=== PATIENT | male | born 1950 | race Caucasian/White ===

== ENCOUNTER 2016-07-29 18:18 | Inpatient (IN) | payer OTHER ==
--- NOTE | ~2016-07-29 | CN ---
Consultation Report [facility] [address] [place]. [address] NAME: JUANPABLO ESPINOZA JR : 46 STATUS : ADM IN PAT#: [id number] AGE: 66 ADM/REG DATE : 07/29/16 MR#: [id number] REPORT SERV DATE: 07/29/16 DICTATED BY: ERIK HERNANDEZ DATE: 07/29/16 REPORT STATUS : Draft TRANSCRIBED BY: MODL DATE: 07/29/16 PULMONARY CRITICAL CARE MEDICINE CONSULTATION DATE OF CONSULTATION: 07/29/2016 REASON FOR CONSULTATION: Acute pancreatitis in the setting of alcoholism. HISTORY OF PRESENT ILLNESS: Mr. 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 He presented to our emergency department this afternoon after developing severe chest pain at home which was unrelieved by Pepto-Bismol which he believed initially to be due to gastric reflux. He also took an aspirin at home. The pain was sharp and radiated to his midscapular region in the back. He described the pain as intermittent. On his presentation in the emergency department, he was seen by Dr. Wolff and had an EKG which showed his chronic and previously documented left bundle-branch block. He was treated with morphine, Ativan, nitroglycerin, and heparin and unfortunately continued to have severe midsternal chest pain. Dr. Hilton was consulted for emergent coronary angiography due to high clinical suspicion for acute coronary syndrome. He was taken for left heart cath and Dr. Hilton assessed the patient and became concerned for potential aortic dissection. He was actually transferred from the left heart rn labor delivery to the CT scanner and ultimately back to the left heart rn labor delivery to finish his procedure. CT showed no PE and no aortic dissection; however, it did demonstrate inflammation about the pancreatic bed without evidence of necrosis. His heart cath was completed demonstrating 45% LAD proximal stenosis and eccentric 70% ostial left main coronary artery stenosis with superior staining concerning for aortic dissection (this was the finding that led to urgent transfer for a CT scan). Ultimately, Dr. Hilton determined that the patient had non-flow limiting coronary artery disease confirmed with IVUS and no intervention was performed as there was a competing diagnosis of alcoholic pancreatitis which was certainly supported by the patient's history of heavy vodka use and clinical presentation. He was moved to the CVICU for close monitoring tonight until the sheath can be removed and the plan is to move him to the floor tomorrow for ongoing management of his acute pancreatitis. PAST MEDICAL HISTORY: Hypertension, alcoholic cirrhosis, prior T-spine fractures, prior upper extremity fractures, tobacco abuse, and alcohol abuse. Coronary artery disease was diagnosed today. PAST SURGICAL HISTORY: ORIF of the humerus by Dr. Pasha Galvin on 11/13/2015 and chole[address]ectomy by Dr. Matteo Espana on 12/24/2015. SOCIAL HISTORY: The patient is a retired banker. He smokes approximately one pack per day and drinks up to a fifth of vodka daily. No illicit drug use. He has an estranged who is at the bedside with him this evening. ALLERGIES: NONE. Consultation Report [address] [place]. [address] NAME: JUANPABLO ESPINOZA JR : 46 STATUS : ADM IN [facility]#: [id number] AGE: 66 ADM/REG DATE : 07/29/16 MR#: [id number] REPORT SERV DATE: 07/29/16 DICTATED BY: ERIK HERNANDEZ DATE: 07/29/16 REPORT STATUS : Draft TRANSCRIBED BY: SEE DATE: 07/29/16 FAMILY HISTORY: Noncontributory. HOME MEDICATIONS: Lexapro 20 mg daily, Mobic 15 mg at bedtime, Nexium 40 mg daily, trazodone 150 mg p.o. at bedtime, multivitamin once daily, B complex vitamin once daily, and there is some question as to whether he is taking lisinopril although the pharmacy has not yet confirmed that. REVIEW OF SYSTEMS: A comprehensive 13-point review of systems was completed with the patient at the bedside in CVICU included nausea, pain as described above, reflux symptoms, and agitation. ADVANCE DIRECTIVES: Living Will. The patient is a full DNR which was confirmed on prior records as well as with the patient at the bedside today in the emergency department by Dr. Hilton who has ordered his do not resuscitate status in the chart. PHYSICAL EXAMINATION: GENERAL: The patient is a male who appears older than stated age. He is somewhat agitated and is arguing with nurses on my arrival. HEENT: Head is atraumatic and normocephalic. Pupils are equal, round, and reactive to light. Extraocular movements are intact. He has no evidence of scleral icterus or conjunctival pallor. He is wearing eye glasses. Ears, nose, and mouth are unremarkable. He has fair oral dentition and moist oral mucosa. NECK: Supple without JVD. HEART: S1, S2. Brisk cap refill, distal extremities. LUNGS: Clear bilaterally. ABDOMEN: Soft and markedly tender in the right upper quadrant to light palpation. He has no evidence of peritoneal signs and has quiet bowel sounds. : Unremarkable. Normal external male genitalia. EXTREMITIES: Without clubbing, cyanosis, or edema. He moves all four without difficulty. He has sheath in place in the groin as well as a right radial band from arterial access during left heart cath. LYMPHATIC: Unremarkable. NEUROLOGIC: Intact except for agitation. PSYCHIATRIC: Agitated. SKIN: Warm and dry. No visible rash. LABORATORY AND DIAGNOSTIC DATA: Personal review of diagnostic workup completed in the emergency department: He has a normal white blood cell count of 10.4, H and H are stable at 15.4 and 42.6, platelet count is depressed at 58 (he has chronic thrombocytopenia according to old records). INR is 1.1 with a normal PT. Blood type is B positive, AB negative. Sodium is 141, potassium 3.9, chloride is 108. He does have metabolic acidosis with a carbon dioxide of 16. Renal function is intact with a BUN of 20 and creatinine of 0.97. Calculated GFR is greater than 70. Glucose is 128, calcium is 8.6, magnesium is 2.0, albumin level is 4.1 with a normal total bilirubin as well as fractionated bilirubin. He has mildly elevated alk phos and mildly elevated ALT at 89 and AST at 119. A lipase level Consultation Report [address] [place]. [address] NAME: JUANPABLO ESPINOZA JR : 46 STATUS : ADM IN [facility]#: [id number] AGE: 66 ADM/REG DATE : 07/29/16 MR#: [id number] REPORT SERV DATE: 07/29/16 DICTATED BY: ERIK HERNANDEZ DATE: 07/29/16 REPORT STATUS : Draft TRANSCRIBED BY: MODL DATE: 07/29/16 was markedly elevated at 11,412. Troponin is negative at 0.03. An ABG completed this evening shows mild metabolic acidosis with pH of 7.299, PCO2 level of 35.6, PO2 of 100.6, bicarb calculated at 17.1 with base excess of negative 8.4 (collected on 40% FiO2). An EKG shows left bundle-branch block with sinus tachycardia, occasional PVCs, and no significant ST elevation or depression by my assessment. I did review the CT of the aorta which was performed with contrast to exclude dissection. He has no visible aortic dissection by my read. No pulmonary artery filling defects. Prior T-spine fractures which are chronic. Inflammation of the pancreas without evidence of necrosis, nonspecific hepatic steatosis pattern, and right basilar atelectasis of the lung. Echocardiograms were ordered for tomorrow. IMPRESSION: 1. Acute pancreatitis, likely secondary to alcoholism. 2. Metabolic acidosis secondary to the above. 3. Non-flow limiting coronary artery disease. 4. Hypertension. 5. Dyslipidemia. 6. Tobacco abuse. 7. Alcoholic cirrhosis by CT scan. 8. Chronic thrombocytopenia. 9. Mildly elevated transaminases secondary to acute pancreatitis. 10.Additional past medical history as above. PLAN: We will begin aggressively hydrating Mr. Espinoza and we will monitor him off antibiotics since he has no evidence of pancreatic necrosis on CT scan. We will check a procalcitonin level as well as a lactate and correct his metabolic acidosis as needed. He will be kept n.p.o. and we will trend his lipase levels below. Proceed with hepatitis screening as well as HIV screening. Obtain outpatient records from Dr. Isai More, his primary care provider, and follow up on additional Cardiology recommendations with regard to medical management of his coronary disease. He is hemodynamically stable in the CVICU tonight and is oxygenating well on minimal supplemental oxygen. We will monitor him closely for developing alcohol withdrawal and cover him with Precedex and p.r.n. Ativan tonight. Check a B12 and folate level in light of his history of alcoholism, cover him with sliding scale insulin to a goal blood glucose of 140 to 180, and treat pain with Dilaudid and nausea with Zofran on an as-needed basis. As noted above, he is a full DNR as per Dr. Hilton and we will plan to transfer him out to the floor tomorrow once his sheath can be removed, likely to Hospital Medicine Service. We appreciate the opportunity to consult on Mr. Espinoza and we will monitor him closely throughout the evening. Please call with questions. Consultation Report [facility] [id number] [place]. [address] NAME: JUANPABLO ESPINOZA JR : 46 STATUS : ADM IN PAT#: [id number] AGE: 66 ADM/REG DATE : 07/29/16 MR#: [id number] REPORT SERV DATE: 07/29/16 DICTATED BY: ERIK HERNANDEZ DATE: 07/29/16 REPORT STATUS : Draft TRANSCRIBED BY: SEE DATE: 07/29/16 DRE/SEE Erik Hernandez MD / [id number] CC: Riky Hilton Jr., M.D.
--- NOTE | ~2016-07-29 | DS ---
Discharge Summary [facility] [address] [place]. [address] NAME: JUANPABLO ESPINOZA JR : 46 STATUS : DIS IN PAT#: [id number] AGE: 66 ADM/REG DATE : 07/29/16 MR#: [id number] REPORT SERV DATE: 08/04/16 DICTATED BY: Lindy SMITH DATE: 08/04/16 REPORT STATUS : Draft TRANSCRIBED BY: SEE DATE: 08/04/16 ADMISSION DATE: 07/29/2016 DISCHARGE DATE: 08/04/2016 DIAGNOSES AT DISCHARGE: Acute alcoholic pancreatitis; thrombocytopenia; cirrhosis; acute metabolic encephalopathy, resolved; and coronary artery disease. CONSULTS: Cardiology. PROCEDURES: Left heart catheterization. BRIEF HOSPITAL COURSE: 66-year-old male patient, who was having severe epigastric and chest pain, was taken to the Cardiac [facility] when his EKG showed left bundle branch of uncertain duration. Cath revealed coronary artery disease, but no lesion amenable to intervention. Follow up evaluation in recovery showed the patient to have a severely elevated lipase, and he was given a diagnosis of pancreatitis. Based on further history, the patient had significant alcohol intake. As a result of this new diagnosis, he was transitioned from the Cardiology Service to the Hospitalist Service, and placed on intermediate care for ongoing treatment of his alcoholic pancreatitis. The patient was given adequate IV fluids, started on CIWA protocol for alcohol withdrawal, and put on bowel rest. The patient had marked improvement over the next several days with regard to his agitation, confusion, pain related symptoms, and improvement in his biochemical markers. On 08/04/2016, the patient was tolerating a low-fat diet. Labs were unremarkable. He was felt stable to transition to the home setting. The patient will be discharged on his home medications with the following adjustments; he will have Ativan 1 mg p.o. q.4 hours p.r.n. #30, [place] 10 mg one every 6 hours p.r.n. #20, and Trandate 400 mg three times a day. We will ask him to no longer consume alcohol. We will ask him to no longer take Mobic. He will no longer take diltiazem. He will have a followup with his primary care provider in approximately three weeks. Further recommendations for ongoing treatment pending outpatient evaluation. DICTATED BY: Lindy Smith M.D. [facility]/SEE Lindy Smith M.D. / [id number] CC: Zarina Zayas M.D.
--- NOTE | ~2016-07-29 | HP ---
History And Physical [facility] [id number] [place]. [address] NAME: LIZANDRO ESPINOZA JR : 46 STATUS : ADM IN [facility]#: [id number] AGE: 66 ADM/REG DATE : 07/29/16 MR#: [id number] REPORT SERV DATE: 07/29/16 DICTATED BY: CHRISITNE HILTON JR. DATE: 07/29/16 REPORT STATUS : Draft TRANSCRIBED BY: SEE DATE: 07/29/16 DATE OF ADMISSION: 07/29/2016 CHIEF COMPLAINT: Chest pain. HISTORY OF PRESENT ILLNESS: Lizandro Espinoza is a 66-year-old, alcoholic, smoker, who has a chronic left bundle-branch block. He developed severe chest pain that was unrelieved by Pepto-Bismol, aspirin. It radiated to his mid scapular region. It started in his chest and it is intermittently crushing in description. On arrival in the ER, the patient had a left bundle-branch block which was known from prior. The patient was treated with morphine, Ativan, nitroglycerin, and heparin and despite the above, his symptoms persisted on a level of 8 to 10/10 chest pain with midsternal chest pain radiating to his mid scapular region. The patient was not hemodynamically unstable. Because of this, we were consulted for emergent coronary angiography and percutaneous intervention for possible ACS. PAST MEDICAL HISTORY: Includes hypertension, includes cirrhosis, includes prior thoracic spinal fractures, and includes upper extremity fractures. He denies GI bleeding, esophageal varices, prior TIA, or stroke. ALLERGIES: DENIED. CURRENT MEDICATIONS: Please see the home medication sheet. SOCIAL HISTORY: The patient is a pack-a-day smoker. He drinks up to a half, a fifth of vodka daily. He does not use recreational drugs. FAMILY HISTORY: Negative for premature vascular events. REVIEW OF SYSTEMS: The patient denies fever or chills, bleeding diathesis, sudden weight gain or weight loss. Remainder as in HPI or negative. PHYSICAL EXAMINATION: VITAL SIGNS: Blood pressure 135/75, heart rate 98, and respirations 20. GENERAL: Elderly male who is uncomfortable. HEENT: Anicteric, no scleral injection, no oral lesions. NECK: No JVD, supple, no bruits. LUNGS: Clear to auscultation. No hyperexpansion. CARDIOVASCULAR: Regular rate and rhythm with tachycardia. ABDOMEN: Soft, nontender. Normoactive bowel sounds, no hepatosplenomegaly. EXTREMITIES: No clubbing, cyanosis or edema. SKIN: No visible rashes. NEURO/PSY: Normal affect, alert and oriented x 3. LABORATORY DATA: Troponin is 0.03. History And Physical [address] [address] NAME: LIZANDRO ESPINOZA JR : 46 STATUS : ADM IN [facility]#: [id number] AGE: 66 ADM/REG DATE : 07/29/16 MR#: [id number] REPORT SERV DATE: 07/29/16 DICTATED BY: CHRISTINE HILTON JR. DATE: 07/29/16 REPORT STATUS : Draft TRANSCRIBED BY: SEE DATE: 07/29/16 EKG: Reveals left bundle-branch block. MEDICAL DECISION MAKIN. Chest pain with radiation to mid scapular region. The chest x-ray does not show obvious evidence for dissection. The patient's symptoms have persisted and somewhat worsened despite aggressive medical therapy. He has multiple risk factors for ischemic heart disease. The patient will be taken to the cardiac catheterization laboratory for urgent coronary angiography and percutaneous intervention. The risks were verbally explained and verbally accepted. This is an emergency procedure. 2. The patient will undergo DT prophylaxis secondary unknown alcohol abuse that is recent. 3. Smoking cessation. Counseling was initiated. 4. We will adjust antihypertensives during the hospital stay. 5. Cirrhosis. The patient has known cirrhosis from alcoholism. We will observe this closely during the hospital stay. He has chronic thrombocytopenia. 6. DNR status. The patient has been DNR on prior hospital stays. The patient reaffirmed this desire clearly. [facility]/SEE Christine Hilton Jr., M.D. / [id number] CC: Zarina Laguna Jr., M.D.
[2016-07-29 18:07] LABS: BASOPHILS 0.1 %; BASOPHILS ABSOLUTE 0.01 10/3/uL (0.0-0.16); EOSINOPHILS 0 %; IMMATURE GRANULOCYTES 0.4 %; IMMATURE GRANULOCYTES ABSOLUTE 0.04 10/3/uL (0.0-0.11); LYMPHOCYTES 10.1 %; LYMPHOCYTES ABSOLUTE 1.05 10/3/uL (0.67-4.30); MEAN CORPUS HGB CONC 36.2 g/dL (32.0-36.0); MEAN CORPUSCULAR HEMOGLOB 34.9 pg (26.0-34.0); MEAN CORPUSCULAR VOLUME 96.6 fL (80-100); MEAN PLATELET VOLUME 11.3 fL (9.2-13.0); MONOCYTES 6.4 %; MONOCYTES ABSOLUTE 0.67 10/3/uL (0.21-1.20); NEUTROPHILS ABSOLUTE 8.64 10/3/uL (2.02-8.40); RBC DISTRIBUTION WIDTH 13.4 % (12.0-16.0); RED CELL COUNT 4.41 10/6/uL (4.7-6.1); WHITE BLOOD CELLS 10.4 10/3/uL (4.5-10.5)
[2016-07-29 18:12] LABS: HEMATOCRIT 42.6 % (40.0-51.0); HEMOGLOBIN 15.4 g/dL (13.6-17.8); MANUAL DIFF NO %; PLATELET COUNT 58 10/3/uL (150-400)
[~2016-07-29 18:18] MED LIST: ATV.5 PO; COREG6 PO; DILT-XR180 MG PO; DILT-XR240 MG PO; DSS PO; FOLIC PO; LAMICTAL10 PO; LEXAPRO20 PO; NEXIUM40 PO; NORV5 PO; PCET PO; PRAVACHOL40 MG PO; PRIN20 PO; PRISTIQ50 MG PO; PROTONIX PO; RESTORIL30 MG PO; TRAZODONE150 MG PO; ZOL50 PO; [UNRECOGNIZED DRUG - REMARK]
[2016-07-29 18:23] LABS: BUN (BLOOD UREA NITROGEN) 20 MG/DL (6-23); CALCIUM, SERUM 8.6 MG/DL (8.5-10.4); CHEST PAIN PROFILE TAT 0 Hrs 22 Mins; CHLORIDE, SERUM 108 MMOL/L (96-112); CO2 (CARBON DIOXIDE) 16 MMOL/L (24-34); CREATININE 0.97 MG/DL (0.70-1.30); GFR AFRICAN AMERICAN 93 ML/MIN (>=60); GFR NON AFRICAN AMERICAN 80 ML/MIN (>=60); GLUCOSE, SERUM 128 MG/DL (60-99); POTASSIUM, SERUM 3.9 MMOL/L (3.5-5.3); SODIUM, SERUM 141 MMOL/L (135-148); TROPONIN I 0.03 NG/ML (<0.05)
[2016-07-29 18:24] LABS: INTERNATIONAL NORMAL RATI 1.1 UNITS (-); PROTIME (NOT ORD) 14.2 SEC (12.0-14.5)
[2016-07-29 18:29] LABS: PARTIAL THROMBO TIME 25.2 SEC (22.5-37.2)
[2016-07-29 18:34] LABS: PLATELET ESTIMATE DEC (ADEQUATE); RBC MORPHOLOGY NORM (NORMAL)
[2016-07-29] MEDS ORDERED: NEXIUM40 PO (18:41)
[2016-07-29] MEDS ORDERED: LEXAPRO20 PO (18:41)
[2016-07-29] MEDS ORDERED: MOBIC15 MG PO (18:41)
[2016-07-29] MEDS ORDERED: TRAZODONE150 MG PO (18:41)
[2016-07-29] MEDS ORDERED: CENTRUM PO (18:42)
[2016-07-29] MEDS ORDERED: B-COMPLEX/1 (18:43)
[2016-07-29] MEDS ORDERED: *UNABLE3 (18:44)
[2016-07-29 22:10] LABS: ALBUMIN 4.1 G/DL (3.5-5.0); ALKALINE PHOSPHATASE 119 U/L (45-117); DIRECT BILIRUBIN 0.4 MG/DL (0.0-0.4); INDIRECT BILIRUBIN(NOT ORDER) 0.6 MG/DL (0.1-0.9); SGOT(AST) 119 U/L (5-40); SGPT(ALT) 89 U/L (5-65)
[2016-07-29 22:10] LABS: ALLENS TEST Pos; BE (BASE EXCESS) -8.4 MEQ/L (0 +/- 2.5); CARBOXYHEMOGLOBIN 1.3 % (0-3); DEVICE NC; HCO3 (ACTUAL BICARBONATE) 17.1 MEQ/L (23-27); HEMOBLOGIN CONTENT 15.5 G/DL (14-18); INSTRUMENT SERIAL # 11843; METHEMOGLOBIN 0.5 % (0-3); O2 CONTENT 20.7 VOL% (18-24); OPERATOR ID 13744; PCO2 (CO2 TENSION) 36 MMHG (35-45); PO2 (O2 TENSION) 101 MMHG (79-93); SAMPLE Arterial
[2016-07-29 22:46] LABS: PROCALCITONIN 0.11 ng/mL (<0.5)
[2016-07-30 00:31] LABS: FOLATE 26.6 NG/ML (>5.2)
[2016-07-30 04:31] LABS: BASOPHILS 0.1 %; BASOPHILS ABSOLUTE 0.01 10/3/uL (0.0-0.16); EOSINOPHILS 0 %; HEMATOCRIT 39.5 % (40.0-51.0); HEMOGLOBIN 14.2 g/dL (13.6-17.8); IMMATURE GRANULOCYTES 0.3 %; IMMATURE GRANULOCYTES ABSOLUTE 0.03 10/3/uL (0.0-0.11); LYMPHOCYTES 6.8 %; LYMPHOCYTES ABSOLUTE 0.71 10/3/uL (0.67-4.30); MEAN CORPUS HGB CONC 35.9 g/dL (32.0-36.0); MEAN CORPUSCULAR VOLUME 97.3 fL (80-100); MEAN PLATELET VOLUME 10.5 fL (9.2-13.0); MONOCYTES 7.3 %; MONOCYTES ABSOLUTE 0.76 10/3/uL (0.21-1.20); NEUTROPHILS 85.5 %; NEUTROPHILS ABSOLUTE 8.95 10/3/uL (2.02-8.40); RBC DISTRIBUTION WIDTH 13.4 % (12.0-16.0); RED CELL COUNT 4.06 10/6/uL (4.7-6.1); WHITE BLOOD CELLS 10.5 10/3/uL (4.5-10.5)
[2016-07-30 04:34] LABS: PLATELET COUNT 34 10/3/uL (150-400)
[2016-07-30 04:35] LABS: MANUAL DIFF NO %
[2016-07-30 04:38] LABS: A/G RATIO 1.2 (0.7-1.9); ALBUMIN 3.5 G/DL (3.5-5.0); CALCIUM, SERUM 7.8 MG/DL (8.5-10.4); CHLORIDE, SERUM 110 MMOL/L (96-112); CREATININE 0.73 MG/DL (0.70-1.30); GFR AFRICAN AMERICAN 110 ML/MIN (>=60); GFR NON AFRICAN AMERICAN 95 ML/MIN (>=60); GLOBULIN 2.9 G/DL (2.5-4.1); GLUCOSE, SERUM 110 MG/DL (60-99); PHOSPHORUS, SERUM 2.9 MG/DL (2.5-4.5); POTASSIUM, SERUM 4.2 MMOL/L (3.5-5.3); SGOT(AST) 92 U/L (5-40); SGPT(ALT) 78 U/L (5-65); SODIUM, SERUM 143 MMOL/L (135-148); TOTAL BILIRUBIN 1.1 MG/DL (0-1.2); TOTAL PROTEIN 6.4 G/DL (6.0-8.5); TROPONIN I 0.04 NG/ML (<0.05)
[2016-07-30 04:41] LABS: ALKALINE PHOSPHATASE 103 U/L (45-117); BUN (BLOOD UREA NITROGEN) 14 MG/DL (6-23); CO2 (CARBON DIOXIDE) 22 MMOL/L (24-34)
[2016-07-30 05:39] LABS: RBC MORPHOLOGY NORM (NORMAL)
[2016-07-30 09:40] LABS: HEPATITIS B SURFACE ANTIGEN NON-REACTIVE (NON-REACT)
[2016-07-30 10:05] LABS: HEPATITIS C ANTIBODY NON-REACTIVE (NON-REACT)
[2016-07-30 10:06] LABS: HEPATITIS B CORE AB IGM NON-REACTIVE (NON-REAC); HIV COMBO NON-REACTIVE (NON REAC)
[2016-07-30 10:07] LABS: HEP A ANTIBODY IGM NON-REACTIVE (NON-REACT)
[2016-07-31] MEDS ORDERED: DILT-XR240 MG PO (00:14)
[2016-07-31] MEDS ORDERED: VITC500 (00:18)
[2016-07-31] MEDS ORDERED: ACIDOPHILU2 PO (00:19)
[2016-07-31] MEDS ORDERED: MAG OXIDE250 MG PO (00:20)
[2016-07-31] MEDS ORDERED: ZINC (00:21)
[2016-07-31] MEDS ORDERED: B1100 (00:23)
[2016-07-31] MEDS ORDERED: SELENIUM (00:25)
[2016-07-31 06:16] LABS: BASOPHILS 0.1 %; BASOPHILS ABSOLUTE 0.01 10/3/uL (0.0-0.16); EOSINOPHILS 0.1 %; EOSINOPHILS ABSOLUTE 0.01 10/3/uL (0.0-0.53); HEMATOCRIT 37.1 % (40.0-51.0); IMMATURE GRANULOCYTES 1.6 %; IMMATURE GRANULOCYTES ABSOLUTE 0.16 10/3/uL (0.0-0.11); LYMPHOCYTES 11.7 %; LYMPHOCYTES ABSOLUTE 1.17 10/3/uL (0.67-4.30); MEAN CORPUSCULAR HEMOGLOB 34.3 pg (26.0-34.0); MEAN CORPUSCULAR VOLUME 97.9 fL (80-100); MEAN PLATELET VOLUME 11.3 fL (9.2-13.0); MONOCYTES 3.9 %; MONOCYTES ABSOLUTE 0.39 10/3/uL (0.21-1.20); NEUTROPHILS 82.6 %; NEUTROPHILS ABSOLUTE 8.25 10/3/uL (2.02-8.40); RBC DISTRIBUTION WIDTH 13.2 % (12.0-16.0); RED CELL COUNT 3.79 10/6/uL (4.7-6.1)
[2016-07-31 06:17] LABS: MANUAL DIFF NO %; PLATELET COUNT 25 10/3/uL (150-400)
[2016-07-31 06:29] LABS: BUN (BLOOD UREA NITROGEN) 9 MG/DL (6-23); CHLORIDE, SERUM 105 MMOL/L (96-112); CO2 (CARBON DIOXIDE) 28 MMOL/L (24-34); GFR AFRICAN AMERICAN 120 ML/MIN (>=60); GFR NON AFRICAN AMERICAN 103 ML/MIN (>=60); GLUCOSE, SERUM 117 MG/DL (60-99); POTASSIUM, SERUM 3.5 MMOL/L (3.5-5.3); SODIUM, SERUM 139 MMOL/L (135-148)
[2016-07-31 06:38] LABS: RBC MORPHOLOGY NORM (NORMAL)
[2016-08-01 04:54] LABS: BASOPHILS 0.1 %; BASOPHILS ABSOLUTE 0.01 10/3/uL (0.0-0.16); EOSINOPHILS 0.6 %; EOSINOPHILS ABSOLUTE 0.05 10/3/uL (0.0-0.53); HEMATOCRIT 33.9 % (40.0-51.0); IMMATURE GRANULOCYTES 0.7 %; IMMATURE GRANULOCYTES ABSOLUTE 0.06 10/3/uL (0.0-0.11); LYMPHOCYTES 10.8 %; LYMPHOCYTES ABSOLUTE 0.95 10/3/uL (0.67-4.30); MEAN CORPUS HGB CONC 35.4 g/dL (32.0-36.0); MEAN CORPUSCULAR HEMOGLOB 34.8 pg (26.0-34.0); MEAN CORPUSCULAR VOLUME 98.3 fL (80-100); MEAN PLATELET VOLUME 11.8 fL (9.2-13.0); MONOCYTES 5.9 %; MONOCYTES ABSOLUTE 0.52 10/3/uL (0.21-1.20); NEUTROPHILS 81.9 %; NEUTROPHILS ABSOLUTE 7.21 10/3/uL (2.02-8.40); RBC DISTRIBUTION WIDTH 13.2 % (12.0-16.0); RED CELL COUNT 3.45 10/6/uL (4.7-6.1); WHITE BLOOD CELLS 8.8 10/3/uL (4.5-10.5)
[2016-08-01 04:55] LABS: PLATELET COUNT 28 10/3/uL (150-400)
[2016-08-01 04:56] LABS: MANUAL DIFF NO %
[2016-08-01 05:02] LABS: BUN (BLOOD UREA NITROGEN) 9 MG/DL (6-23); CALCIUM, SERUM 8.1 MG/DL (8.5-10.4); CHLORIDE, SERUM 104 MMOL/L (96-112); CO2 (CARBON DIOXIDE) 27 MMOL/L (24-34); CREATININE 0.71 MG/DL (0.70-1.30); GFR AFRICAN AMERICAN 112 ML/MIN (>=60); GFR NON AFRICAN AMERICAN 96 ML/MIN (>=60); GLUCOSE, SERUM 162 MG/DL (60-99); POTASSIUM, SERUM 3.2 MMOL/L (3.5-5.3); SODIUM, SERUM 137 MMOL/L (135-148)
[2016-08-01 05:24] LABS: RBC MORPHOLOGY NORM (NORMAL)
[2016-08-01] MEDS ORDERED: LIPOTRIAD1 CAP PO (13:59)
[2016-08-01] MEDS ORDERED: BENGAY TOP (14:05)
[2016-08-02 04:42] LABS: BUN (BLOOD UREA NITROGEN) 9 MG/DL (6-23); CALCIUM, SERUM 8.3 MG/DL (8.5-10.4); CHLORIDE, SERUM 106 MMOL/L (96-112); CO2 (CARBON DIOXIDE) 28 MMOL/L (24-34); GFR AFRICAN AMERICAN 120 ML/MIN (>=60); GFR NON AFRICAN AMERICAN 103 ML/MIN (>=60); GLUCOSE, SERUM 168 MG/DL (60-99); POTASSIUM, SERUM 3.5 MMOL/L (3.5-5.3); SGOT(AST) 45 U/L (5-40); SGPT(ALT) 46 U/L (5-65); SODIUM, SERUM 141 MMOL/L (135-148); TOTAL BILIRUBIN 1.4 MG/DL (0-1.2); TOTAL PROTEIN 5.6 G/DL (6.0-8.5)
[2016-08-02 04:44] LABS: A/G RATIO 0.8 (0.7-1.9); ALBUMIN 2.5 G/DL (3.5-5.0); ALKALINE PHOSPHATASE 82 U/L (45-117); GLOBULIN 3.1 G/DL (2.5-4.1)
[2016-08-02 07:32] LABS: BASOPHILS 0.1 %; BASOPHILS ABSOLUTE 0.01 10/3/uL (0.0-0.16); EOSINOPHILS 1.1 %; EOSINOPHILS ABSOLUTE 0.09 10/3/uL (0.0-0.53); HEMATOCRIT 32.2 % (40.0-51.0); HEMOGLOBIN 11.4 g/dL (13.6-17.8); IMMATURE GRANULOCYTES 0.3 %; IMMATURE GRANULOCYTES ABSOLUTE 0.02 10/3/uL (0.0-0.11); LYMPHOCYTES 9.9 %; LYMPHOCYTES ABSOLUTE 0.79 10/3/uL (0.67-4.30); MEAN CORPUS HGB CONC 35.4 g/dL (32.0-36.0); MEAN CORPUSCULAR HEMOGLOB 35.1 pg (26.0-34.0); MEAN CORPUSCULAR VOLUME 99.1 fL (80-100); MEAN PLATELET VOLUME 11.5 fL (9.2-13.0); MONOCYTES 10.3 %; MONOCYTES ABSOLUTE 0.82 10/3/uL (0.21-1.20); NEUTROPHILS 78.3 %; NEUTROPHILS ABSOLUTE 6.23 10/3/uL (2.02-8.40); RBC DISTRIBUTION WIDTH 13.1 % (12.0-16.0); RED CELL COUNT 3.25 10/6/uL (4.7-6.1)
[2016-08-02 07:34] LABS: MANUAL DIFF NO %; PLATELET COUNT 51 10/3/uL (150-400)
[2016-08-02 08:22] LABS: PLATELET ESTIMATE DEC (ADEQUATE); RBC MORPHOLOGY NORM (NORMAL)
[2016-08-03 04:16] LABS: HEMATOCRIT 34.5 % (40.0-51.0); HEMOGLOBIN 12.2 g/dL (13.6-17.8); MEAN CORPUS HGB CONC 35.4 g/dL (32.0-36.0); MEAN CORPUSCULAR HEMOGLOB 34.7 pg (26.0-34.0); MEAN PLATELET VOLUME 10.6 fL (9.2-13.0); RBC DISTRIBUTION WIDTH 13.1 % (12.0-16.0); RED CELL COUNT 3.52 10/6/uL (4.7-6.1); WHITE BLOOD CELLS 6.7 10/3/uL (4.5-10.5)
[2016-08-03 04:22] LABS: MANUAL DIFF YES %; PLATELET COUNT 71 10/3/uL (150-400)
[2016-08-03 04:41] LABS: A/G RATIO 0.7 (0.7-1.9); ALBUMIN 2.6 G/DL (3.5-5.0); ALKALINE PHOSPHATASE 85 U/L (45-117); BUN (BLOOD UREA NITROGEN) 10 MG/DL (6-23); CHLORIDE, SERUM 106 MMOL/L (96-112); CREATININE 0.72 MG/DL (0.70-1.30); GFR AFRICAN AMERICAN 111 ML/MIN (>=60); GFR NON AFRICAN AMERICAN 96 ML/MIN (>=60); GLOBULIN 3.6 G/DL (2.5-4.1); GLUCOSE, SERUM 139 MG/DL (60-99); POTASSIUM, SERUM 3.6 MMOL/L (3.5-5.3); SGOT(AST) 41 U/L (5-40); SGPT(ALT) 46 U/L (5-65); SODIUM, SERUM 139 MMOL/L (135-148); TOTAL BILIRUBIN 1.1 MG/DL (0-1.2); TOTAL PROTEIN 6.2 G/DL (6.0-8.5)
[2016-08-03 04:45] LABS: CO2 (CARBON DIOXIDE) 23 MMOL/L (24-34)
[2016-08-03 06:32] LABS: BAND NEUTROPHILS 1 %; BASOPHILS 1 %; BASOPHILS ABSOLUTE (CALC) 0.07 10/3/uL (0.0-0.16); EOSINOPHILS 3 %; LYMPHOCYTES 18 %; LYMPHOCYTES ABSOLUTE (CALC) 1.21 10/3/uL (0.67-4.30); MONOCYTES 13 %; MONOCYTES ABSOLUTE (CALC) 0.87 10/3/uL (0.21-1.20); NEUTROPHILS ABSOLUTE (CALC) 4.36 10/3/uL (2.02-8.40); SEGMENTED NEUTROPHIL (0) 64 %; TOTAL NUCLEATED CELLS 100
[2016-08-03 06:38] LABS: PLATELET ESTIMATE DEC (ADEQUATE)
[2016-08-04] MEDS ORDERED: TRAN200 PO (14:44)
[2016-08-04] MEDS ORDERED: ASAB PO (14:44)
[2016-08-04] MEDS ORDERED: NORCO1 TAB PO (14:45)
[2016-08-04] MEDS ORDERED: ATV1 PO (14:45)
== END 2016-08-04 15:22 | disposition home or self-care (01) | DRG 438 ==
LOC: CORLMH 18:18 → SSU2 18:29 → CVICU 20:54 → IMCU 07-30 15:08
PROVIDERS: Hospitalist; Internal Medicine; Internal Medicine Cardiovascular Disease; Internal Medicine Pulmonary Disease
PROC: 4A023N7 Measurement of Cardiac Sampling and Pressure, Left Heart, Percutaneous Approach (ICD-10-PCS; principal; 2016-07-29)
PROC: B2111ZZ Fluoroscopy of Multiple Coronary Arteries using Low Osmolar Contrast (ICD-10-PCS; 2016-07-29)
PROC: B2151ZZ Fluoroscopy of Left Heart using Low Osmolar Contrast (ICD-10-PCS; 2016-07-29)
DX: K85.20 Alcohol induced acute pancreatitis without necrosis or infection (principal); G93.41 Metabolic encephalopathy; E87.2 Acidosis; F10.231 Alcohol dependence with withdrawal delirium; I25.110 Atherosclerotic heart disease of native coronary artery with unstable angina pectoris; I10 Essential (primary) hypertension; Z86.73 Personal history of transient ischemic attack (TIA), and cerebral infarction without residual deficits; K70.30 Alcoholic cirrhosis of liver without ascites
CPT/HCPCS: 36120; 36415; 36600; 71010; 71275; 74175; 80048; 80053; 80074; 80076; 82150; 82607; 82746; 82805; 83605; 83690; 83735; 84100; 84145; 84305; 84484; 85025; 85610; 85730; 86850; 86900; 86901; 87389; 92978; 93005; 93458; 94640; 96374; 97161-GP; 99152; 99153; 99285; A9270-GY; C1753; C1769; C1887; C1894; C8929; J0583; J1170; J1940; J2250; J2405; J3010; J3411; Q9957; Q9967